=== PATIENT | male | born 1980 | race Caucasian/White ===

== ENCOUNTER → 2017-07-11 | Outpatient (CLI) | payer OTHER ==
--- NOTE | 2017-07-12 08:34 | KCIC ---
Examination: MRI right knee without contrast HISTORY: History of right knee pain COMPARISON: None available TECHNIQUE: Multiplanar, multisequence MR imaging of the right knee are performed without contrast FINDINGS: The anterior cruciate ligament, posterior cruciate ligament are intact. There is blunting of the body of the medial meniscus with increased signal identified in the body and posterior horn of the medial meniscus likely tear with some blunting of the posterior horn of the medial meniscus. The lateral meniscus is intact. The medial collateral ligament is intact and the lateral collateral ligamentous complex including the fibular collateral ligament, biceps femoris tendon, popliteus tendon are intact. Moderate knee joint effusion. Extensor mechanism is intact. The medial, lateral retinaculum are intact. Moderate knee joint effusion identified. There is a small leaking popliteal cyst identified. There is superficial fraying of cartilage identified in the patellofemoral compartment, medial, lateral compartments. There is mild edema identified surrounding the medial collateral ligament. Minimal trabecular edema identified in the medial aspect of the medial tibial plateau. Visualized neurovascular bundle grossly appears unremarkable. IMPRESSION: 1. Tear of the body and posterior horn of the medial meniscus. 2. Moderate knee joint effusion with a small leaking popliteal cyst. 3. Mild increased T2 signal identified surrounding the medial collateral ligament likely grade 1 sprain or nonspecific edema. Electronically signed by: Jose G Car MD (07/12/2017 8:31 AM) [id number]
== END | disposition home or self-care (01) ==
LOC: KCIC MRI 15:31
PROVIDERS: ATTEND Nurse Practitioner Acute Care
DX: S83.241A Other tear of medial meniscus, current injury, right knee, initial encounter (principal); M25.461 Effusion, right knee; M71.21 Synovial cyst of popliteal space [Baker], right knee; X58.XXXA Exposure to other specified factors, initial encounter; Y93.89 Activity, other specified; Y92.89 Other specified places as the place of occurrence of the external cause; Y99.8 Other external cause status
CPT/HCPCS: 73721